=== PATIENT | male | born 1980 | race Caucasian/White ===

== ENCOUNTER 2017-02-27 12:05 | Emergency (ER) | payer OTHER ==
[2017-02-27 12:18] VITALS: BP 134/84; PULSE 85; RESP 18; TEMP 98
--- NOTE | 2017-02-27 12:41 | ED ---
General Adult HPI - General Chief complaint: Extremity Injury, Upper Stated complaint: Left Shoulder Injury-[facility] Time Seen by Provider: 02/27/17 12:18 Source: patient, RN notes reviewed Mode of arrival: ambulatory Limitations: no limitations - History of Present Illness Initial comments: Patient 37-year-old male who presents emergency room today with a chief complaint of increased pain to the left shoulder. He states that over the last few weeks been noticing some tenderness. He states worse with movements. He does admit to a repetitive motion at his work. Patient states worse today with any movement of the left shoulder and also left bicep. States feels like he cannot shoulder. Patient states she's been using ibuprofen along with some [place] for the pain. He denies any other injury or complaint. Patient denies any recent fever, chills, shortness of breath, chest pain, back pain, abdominal pain, nausea or vomiting, numbness or tingling, dysuria or hematuria, constipation or diarrhea, headaches or visual changes, or any other complaints. - Related Data Previous Rx's Medication Instructions Recorded Ibuprofen [Motrin] 800 mg PO Q6HR #30 tab 02/27/17 predniSONE 40 mg PO DAILY 5 Days 02/27/17 Allergies Allergy/AdvReac Type Severity Reaction Status Date / Time amoxicillin [From Augmentin] AdvReac Nausea & Verified 02/27/17 12:17 Vomiting & Diarrhea clavulanic acid AdvReac Nausea & Verified 02/27/17 12:17 [From Augmentin] Vomiting & Diarrhea Review of Systems ROS Statement: Those systems with pertinent positive or pertinent negative responses have been documented in the HPI. ROS Other: All systems not noted in ROS Statement are negative. Past Medical History Past Medical History: Hyperlipidemia History of Any Multi-Drug Resistant Organisms: None Reported Past Surgical History: No Surgical Hx Reported Past Psychological History: No Psychological Hx Reported Smoking Status: Never smoker Past Alcohol Use History: None Reported Past Drug Use History: None Reported General Exam - General Exam Comments Initial Comments: General: The patient is awake and alert, in no distress, and does not appear acutely ill. Neck: The neck is supple, there is no tenderness or JVD. Cardiovascular: There is a regular rate and rhythm. No murmur, rub or gallop is appreciated. Respiratory: Lungs are clear to auscultation, respirations are non-labored, breath sounds are equal. No wheezes, stridor, rales, or rhonchi. Musculoskeletal: Normal appearance of left shoulder no obvious deformity. He shows limited range of motion due to pain. Is able to passive movement of the shoulder area is sensations are intact pulses equal bilaterally 2+. He does have tenderness in the bicipital groove. Patient's pain reproduced with flexion against resistance of the left bicep. Neurological: A&O x 3. CN II-XII intact, There are no obvious motor or sensory deficits. Coordination appears grossly intact. Speech is normal. Skin: Skin is warm and dry and no rashes or lesions are noted. Psychiatric: Normal mood and affect. Limitations: no limitations Course Vital Signs 02/27/17 12:13 Temperature 98.0 F Pulse Rate 85 Respiratory 18 Rate Blood Pressure 134/84 O2 Sat by Pulse 98 Oximetry Medical Decision Making - Medical Decision Making Patient's symptoms are consistent with biceps tendinitis. Will be continued on anti-inflammatories given short course of steroids for symptoms advised follow- up with orthopedics for further evaluation Disposition Clinical Impression: Biceps tendinitis Disposition: HOME SELF-CARE Condition: Good Instructions: Tendinitis (ED) Additional Instructions: Please use medication as discussed. Please follow-up with orthopedics over the next 2 days as discussed. Please return to emergency room if the symptoms increase or worsen or for any other concerns. Prescriptions: Ibuprofen [Motrin] 800 mg PO Q6HR #30 tab predniSONE 40 mg PO DAILY 5 Days Referrals: Johnathon Moser MD [Primary Care Provider] - 1-2 days Tanner Boyer MD [STAFF PHYSICIAN] - 1-2 days Time of Disposition: 12:41
== END 2017-02-27 12:59 | disposition home or self-care (01) ==
LOC: EC 12:05
DX: M75.22 Bicipital tendinitis, left shoulder (principal); Z88.0 Allergy status to penicillin
CPT/HCPCS: 99283

== ENCOUNTER 2018-08-14 13:07 | Observation (INO) | payer OTHER ==
[2018-08-14] MEDS ORDERED: SODIUM CHLORIDE 0.9% 500 ML 500 ML IV STA (15:10)
[2018-08-14] MEDS ORDERED: MECLIZINE 12.5 MG TAB PO STA (15:10)
--- NOTE | 2018-08-14 15:14 | ED ---
General Adult HPI - General Chief complaint: Dizziness Stated complaint: Chest pain Time Seen by Provider: 08/14/18 15:01 Source: patient, family, RN notes reviewed Mode of arrival: ambulatory Limitations: no limitations - History of Present Illness Initial comments: Patient is a pleasant 38-year-old male presenting to the emergency Department with both dizziness and chest discomfort. Chest discomfort has been intermittent over the past week. Patient has episodes lasting up to around 10 minutes. Episodes are described as pressure in there is areas of the chest. Last episode was around arrival to the emergency Department. No associated dyspnea, nausea, or diaphoresis. Patient does also feel lightheaded since this morning. Lightheadedness is positional. No confusion. No weakness. No vomiting. No visual changes. No confusion. Patient denies spinning type sensation. - Related Data Home Medications Medication Instructions Recorded Confirmed Loratadine [Claritin] 10 mg PO HS 08/14/18 08/14/18 Ranitidine HCl [Zantac] 150 mg PO HS 08/14/18 08/14/18 Allergies Allergy/AdvReac Type Severity Reaction Status Date / Time amoxicillin [From Augmentin] AdvReac Nausea & Verified 08/14/18 13:51 Vomiting & Diarrhea clavulanic acid AdvReac Nausea & Verified 08/14/18 13:51 [From Augmentin] Vomiting & Diarrhea Review of Systems ROS Statement: Those systems with pertinent positive or pertinent negative responses have been documented in the HPI. ROS Other: All systems not noted in ROS Statement are negative. Constitutional: Denies: fever Eyes: Denies: eye pain ENT: Denies: ear pain Respiratory: Denies: cough, dyspnea Cardiovascular: Reports: chest pain Endocrine: Denies: fatigue Gastrointestinal: Denies: abdominal pain Genitourinary: Denies: dysuria Musculoskeletal: Denies: back pain Skin: Denies: rash Neurological: Denies: headache, weakness, confusion Past Medical History Past Medical History: Hyperlipidemia History of Any Multi-Drug Resistant Organisms: None Reported Past Surgical History: No Surgical Hx Reported Past Psychological History: No Psychological Hx Reported Smoking Status: Never smoker Past Alcohol Use History: None Reported Past Drug Use History: None Reported General Exam Limitations: no limitations General appearance: alert, in no apparent distress Head exam: Present: atraumatic Eye exam: Present: normal appearance, PERRL, EOMI. Absent: nystagmus ENT exam: Present: normal oropharynx Neck exam: Present: normal inspection Respiratory exam: Present: normal lung sounds bilaterally. Absent: chest wall tenderness Cardiovascular Exam: Present: regular rate, normal rhythm Expanded Peripheral pulses: 2+: Radial (R), Radial (L), Dorsalis Pedis (R), Dorsalis Pedis (L) GI/Abdominal exam: Present: soft. Absent: tenderness Extremities exam: Present: normal inspection. Absent: pedal edema, calf tenderness Neurological exam: Present: alert, oriented X3, CN II-XII intact. Absent: motor sensory deficit Expanded Neurological exam: Present: protecting the airway Speech: Present: fluid speech Cranial nerves: EOM's Intact: Normal Motor strength exam: RUE: 5, LUE: 5, RLE: 5, LLE: 5 Eye Response: (4) open spontaneously Motor Response: (6) obeys commands Verbal Response: (5) oriented Psychiatric exam: Present: normal affect, normal mood Skin exam: Present: normal color Course Vital Signs 08/14/18 13:09 Temperature 98.2 F Pulse Rate 64 Respiratory 18 Rate Blood Pressure 142/90 O2 Sat by Pulse 98 Oximetry EKG Findings - EKG Comments: EKG Findings:: Normal sinus rhythm at 70. MD 16. QRS 84. QT 370. QTc 408. Normal axis. Normal QRS. No acute ST change. Medical Decision Making - Medical Decision Making Patient reevaluated and resting comfortably in bed. Lightheadedness has resolved. No chest discomfort at this time. Case was discussed in detail with Dr. Posadas, covering for Dr. Melita tapia, who will admit. She does recommend subcu heparin and cardiology consult. - Lab Data Result diagrams: 08/14/18 14:12 08/14/18 14:12 Lab Results 08/14/18 08/14/18 08/14/18 Range/Units 14:12 14:12 14:12 WBC 5.9 (3.8-10.6) k/uL RBC 5.60 (4.30-5.90) m/uL Hgb 16.2 (13.0-17.5) gm/dL Hct 48.0 (39.0-53.0) % MCV 85.7 (80.0-100.0) fL MCH 29.0 (25.0-35.0) pg MCHC 33.8 (31.0-37.0) g/dL RDW 12.6 (11.5-15.5) % Plt Count 230 (150-450) k/uL Neutrophils % 46 % Lymphocytes % 39 % Monocytes % 7 % Eosinophils % 5 % Basophils % 1 % Neutrophils # 2.7 (1.3-7.7) k/uL Lymphocytes # 2.3 (1.0-4.8) k/uL Monocytes # 0.4 (0-1.0) k/uL Eosinophils # 0.3 (0-0.7) k/uL Basophils # 0.1 (0-0.2) k/uL PT 10.3 (9.0-12.0) sec INR 1.0 (<1.2) APTT 26.0 (22.0-30.0) sec D-Dimer 0.30 (<0.60) mg/L FEU Sodium 141 (137-145) mmol/L Potassium 4.5 (3.5-5.1) mmol/L Chloride 107 (98-107) mmol/L Carbon Dioxide 25 (22-30) mmol/L Anion Gap 9 mmol/L BUN 16 (9-20) mg/dL Creatinine 0.90 (0.66-1.25) mg/dL Est GFR (CKD-EPI)AfAm >90 (>60 ml/min/1.73 sqM) Est GFR (CKD-EPI)NonAf >90 (>60 ml/min/1.73 sqM) Glucose 88 (74-99) mg/dL Calcium 10.0 (8.4-10.2) mg/dL Magnesium 2.1 (1.6-2.3) mg/dL Total Bilirubin 0.9 (0.2-1.3) mg/dL AST 25 (17-59) U/L ALT 44 (21-72) U/L Alkaline Phosphatase 68 (38-126) U/L Creatine Kinase 101 (55-170) U/L Troponin I (0.000-0.034) ng/mL Total Protein 7.6 (6.3-8.2) g/dL Albumin 4.4 (3.5-5.0) g/dL Urine Color Urine Appearance (Clear) Urine pH (5.0-8.0) Ur Specific [place] (1.001-1.035) Urine Protein (Negative) Urine Glucose (UA) (Negative) Urine Ketones (Negative) Urine Blood (Negative) Urine Nitrite (Negative) Urine Bilirubin (Negative) Urine Urobilinogen (<2.0) mg/dL Ur Leukocyte Esterase (Negative) 08/14/18 08/14/18 Range/Units 14:12 15:40 WBC (3.8-10.6) k/uL RBC (4.30-5.90) m/uL Hgb (13.0-17.5) gm/dL Hct (39.0-53.0) % MCV (80.0-100.0) fL MCH (25.0-35.0) pg MCHC (31.0-37.0) g/dL RDW (11.5-15.5) % Plt Count (150-450) k/uL Neutrophils % % Lymphocytes % % Monocytes % % Eosinophils % % Basophils % % Neutrophils # (1.3-7.7) k/uL Lymphocytes # (1.0-4.8) k/uL Monocytes # (0-1.0) k/uL Eosinophils # (0-0.7) k/uL Basophils # (0-0.2) k/uL PT (9.0-12.0) sec INR (<1.2) APTT (22.0-30.0) sec D-Dimer (<0.60) mg/L FEU Sodium (137-145) mmol/L Potassium (3.5-5.1) mmol/L Chloride (98-107) mmol/L Carbon Dioxide (22-30) mmol/L Anion Gap mmol/L BUN (9-20) mg/dL Creatinine (0.66-1.25) mg/dL Est GFR (CKD-EPI)AfAm (>60 ml/min/1.73 sqM) Est GFR (CKD-EPI)NonAf (>60 ml/min/1.73 sqM) Glucose (74-99) mg/dL Calcium (8.4-10.2) mg/dL Magnesium (1.6-2.3) mg/dL Total Bilirubin (0.2-1.3) mg/dL AST (17-59) U/L ALT (21-72) U/L Alkaline Phosphatase (38-126) U/L Creatine Kinase (55-170) U/L Troponin I 0.035 H* (0.000-0.034) ng/mL Total Protein (6.3-8.2) g/dL Albumin (3.5-5.0) g/dL Urine Color Light Yellow Urine Appearance Clear (Clear) Urine pH 6.0 (5.0-8.0) Ur Specific [place] 1.003 (1.001-1.035) Urine Protein Negative (Negative) Urine Glucose (UA) Negative (Negative) Urine Ketones Negative (Negative) Urine Blood Negative (Negative) Urine Nitrite Negative (Negative) Urine Bilirubin Negative (Negative) Urine Urobilinogen <2.0 (<2.0) mg/dL Ur Leukocyte Esterase Negative (Negative) - Radiology Data Radiology results: report reviewed (Computed tomography scan of the brain reveals no acute process), image reviewed (Chest x-ray shows no acute process) Disposition Clinical Impression: Chest pain, Lightheadedness Disposition: ADMITTED IP TO THIS [facility] Is patient prescribed a controlled substance at d/c from ED?: No Referrals: Johnathon Moser MD [Primary Care Provider] - 1-2 days Decision Time: 17:17
[2018-08-14 15:21] LABS: Basophils # (A) 0.1 k/uL (0-0.2); Basophils % (A) 1 %; Eosinophils # (A) 0.3 k/uL (0-0.7); Eosinophils % (A) 5 %; HGB 16.2 gm/dL (13.0-17.5); Lymphocytes # (A) 2.3 k/uL (1.0-4.8); Lymphocytes % (A) 39 %; MCHC 33.8 g/dL (31.0-37.0); MCV 85.7 fL (80.0-100.0); Mean Platelet Volume 9.2; Monocytes # (A) 0.4 k/uL (0-1.0); Monocytes % (A) 7 %; Neutrophils # (A) 2.7 k/uL (1.3-7.7); Neutrophils % (A) 46 %; Platelet Count 230 k/uL (150-450); RDW 12.6 % (11.5-15.5); WBC 5.9 k/uL (3.8-10.6)
[2018-08-14 15:27] LABS: ALT 44 U/L (21-72); AST 25 U/L (17-59); Albumin 4.4 g/dL (3.5-5.0); Alkaline Phosphatase 68 U/L (38-126); Anion Gap 9 mmol/L; Blood Urea Nitrogen 16 mg/dL (9-20); Carbon Dioxide 25 mmol/L (22-30); Chloride 107 mmol/L (98-107); Creatine Kinase 101 U/L (55-170); Glucose 88 mg/dL (74-99); Magnesium 2.1 mg/dL (1.6-2.3); Potassium 4.5 mmol/L (3.5-5.1); Sodium 141 mmol/L (137-145); Total Bilirubin 0.9 mg/dL (0.2-1.3); Total Protein 7.6 g/dL (6.3-8.2)
[2018-08-14 15:33] LABS: D-Dimer 0.3 mg/L FEU (<0.60); Prothrombin Time 10.3 sec (9.0-12.0)
--- NOTE | 2018-08-14 15:45 | XR ---
EXAMINATION TYPE: XR chest 2V DATE OF EXAM: 08/14/2018 COMPARISON: NONE HISTORY: Lightheadedness and chest pain today. TECHNIQUE: Frontal and lateral views of the chest are obtained. FINDINGS: There is no focal air space opacity, pleural effusion, or pneumothorax seen. The cardiac silhouette size is within normal limits. The osseous structures are intact. IMPRESSION: No acute process.
[2018-08-14 15:46] LABS: Appearance,Urine Clear (Clear); Bilirubin,Urine Negative (Negative); Blood,Urine Negative (Negative); Color,Urine Light Yellow; Glucose,Urine (UA) Negative (Negative); Ketones,Urine Negative (Negative); Leukocyte Esterase,Urine Negative (Negative); Nitrite,Urine Negative (Negative); Protein,Urine Negative (Negative); Specific Gravity,Urine 1.003 (1.001-1.035); Urobilinogen,Urine <2.0 mg/dL (<2.0)
--- NOTE | 2018-08-14 16:28 | CT ---
EXAMINATION TYPE: CT brain wo con DATE OF EXAM: 08/14/2018 COMPARISON: NONE HISTORY: Dizziness today. CT DLP: 1079.4 mGycm. Automated Exposure Control for Dose Reduction was Utilized. TECHNIQUE: CT scan of the head is performed without contrast. FINDINGS: There is no acute intracranial hemorrhage, mass effect, or midline shift identified. No suspicious extra axial fluid collection. The ventricles and sulci are within normal limits in size. The globes are intact. Near circumferential mucosal thickening is seen within the right maxillary sin us. Scant mucosal thickening is also present within the left maxillary sinus and sphenoid sinus. Mild mucosal thickening within the ethmoid sinuses seen. Frontal sinuses are well aerated as are the mast oid air cells. IMPRESSION: No acute intracranial hemorrhage, mass effect, or midline shift is seen.
[2018-08-14] MEDS ORDERED: ASPIRIN 81 MG PO STA (17:18)
[2018-08-14] MEDS ORDERED: NITROGLYCERIN SL TABS 0.4 MG TAB SUBLINGUAL PRN (17:18)
[2018-08-14] MEDS: NITROGLYCERIN OINT 1 INCH/GM PACKET TOPICAL SCH ×2 (18:07→23:08)
[2018-08-14] MEDS: HEPARIN SODIUM,PORCINE 5,000 UNIT/ML 1 ML VIAL SQ SCH ×2 (18:07→23:08)
[2018-08-14 18:19] VITALS: BMI 36.9
[2018-08-14] MEDS ORDERED: FAMOTIDINE 20 MG TAB PO SCH (21:00)
[2018-08-14] MEDS ORDERED: LORATADINE 10 MG TAB PO SCH (21:00)
[2018-08-15 03:55] LABS: Cholesterol 318 mg/dL (<200); HDL Cholesterol 23 mg/dL (40-60); LDL Cholesterol,Calculated 229 mg/dL (0-99); Triglycerides 328 mg/dL (<150)
[2018-08-15] MEDS: NITROGLYCERIN OINT 1 INCH/GM PACKET TOPICAL SCH (06:33)
[2018-08-15] MEDS: HEPARIN SODIUM,PORCINE 5,000 UNIT/ML 1 ML VIAL SQ SCH (08:12)
--- NOTE | 2018-08-15 08:53 | P.CRDCN ---
History of Present Illness Consult date: 08/15/18 Requesting physician: Bhumi Posadas Consult reason: chest pain Chief complaint: Dizziness, chest pain History of present illness: This is a pleasant 38-year-old gentleman with history of hyperlipidemia, nonsmoker, no diabetes, nonhypertensive. He presents to the hospital with symptoms of dizziness and generally not feeling well. He also was complaining of some atypical chest pain that he described as a poking aching sensation in different areas of his chest. Patient has been on Zocor in the past, 40 mg, this had been increased to 80 mg and patient developed muscle aching so it was discontinued. Subsequent to that he was started on Crestor and develop symptoms from that as well so currently he is not taking anything. Patient was initially started on statin at the age of 24. His cholesterol is 318, triglycerides 328, LDL 229 and HDL 23. Picture suggestive of heterozygous familial hyperlipidemia. I did talk to the patient this morning about the PCSK- 9 inhibitors. At this point in time we will start the patient on Zetia. CAT scan of the brain was performed on admission which was negative. Chest x-ray does not reveal any acute process. EKG shows normal sinus rhythm with no acute changes. Blood pressure 114/70 with a heart rate in the 60s, 96% on room air. White blood cell count 5.9, hemoglobin 16.2, platelet count 2:30. D-dimer 0.3. Sodium 141, potassium 4.5, BUN 16 and creatinine 0.9. Initial troponin 0.035, subsequent troponins 0.012, 0.012. At the time of my examination this morning, patient feels well, denies any chest pain, no dizziness or lightheadedness. Past Medical History Past Medical History: Asthma, Hyperlipidemia History of Any Multi-Drug Resistant Organisms: None Reported Past Surgical History: No Surgical Hx Reported Past Anesthesia/Blood Transfusion Reactions: No Reported Reaction Past Psychological History: No Psychological Hx Reported Smoking Status: Never smoker Past Alcohol Use History: None Reported Past Drug Use History: None Reported - Past Family History Father History Unknown: Yes Family Medical History: Coronary Artery Disease (CAD), Hyperlipidemia, Myocardial Infarction (ID) Mother Family Medical History: Hyperlipidemia, Hypertension Medications and Allergies Home Medications Medication Instructions Recorded Confirmed Type Loratadine [Claritin] 10 mg PO HS 08/14/18 08/14/18 History Ranitidine HCl [Zantac] 150 mg PO HS 08/14/18 08/14/18 History Allergies Allergy/AdvReac Type Severity Reaction Status Date / Time amoxicillin [From Augmentin] AdvReac Nausea & Verified 08/14/18 13:51 Vomiting & Diarrhea clavulanic acid AdvReac Nausea & Verified 08/14/18 13:51 [From Augmentin] Vomiting & Diarrhea Physical Exam Vitals: Vital Signs Temp Pulse Pulse Resp BP BP Pulse Ox 08/15/18 04:00 97.6 F 60 16 99/64 97 08/15/18 03:40 20 08/15/18 00:00 60 20 08/14/18 23:06 98 F 60 20 115/71 96 08/14/18 20:00 98.1 F 67 20 124/79 98 08/14/18 19:54 96 08/14/18 18:42 64 18 08/14/18 18:39 98.1 F 64 18 127/87 98 08/14/18 17:43 98.2 F 71 19 119/92 98 08/14/18 13:09 98.2 F 64 18 142/90 98 Intake and Output 08/14/18 08/15/18 08/15/18 22:59 06:59 14:59 Intake Total 300 250 Balance 300 250 Intake: Oral 300 250 Other: # Voids 2 Weight 117.9 kg PHYSICAL EXAMINATION: GENERAL: 38-year-old gentleman in no acute distress at the time of my examination HEENT: Head is atraumatic, normocephalic. Pupils equal, round. Sclera anicteric. Conjunctiva are clear. Mucous membranes of the mouth are moist. Neck is supple. There is no elevated jugular venous pressure. No carotid bruit is heard. HEART EXAMINATION: Heart S1, S2 normal. No murmur or gallop heard. CHEST EXAMINATION: Lungs are clear to auscultation and precussion. No chest wall tenderness is noted on palpation or with deep breathing. ABDOMEN: Soft, nontender. Bowel sounds are heard. No organomegaly noted. EXTREMITIES: 2+ peripheral pulses with no evidence of peripheral edema and no calf tenderness noted. NEUROLOGIC patient is awake, alert and oriented 3 . . Results 08/14/18 14:12 08/14/18 14:12 Cardiac Enzymes 08/14/18 08/14/18 08/14/18 Range/Units 14:12 14:12 20:15 AST 25 (17-59) U/L Troponin I 0.035 H* <0.012 (0.000-0.034) ng/mL 08/15/18 Range/Units 03:15 AST (17-59) U/L Troponin I <0.012 (0.000-0.034) ng/mL Coagulation 08/14/18 Range/Units 14:12 PT 10.3 (9.0-12.0) sec APTT 26.0 (22.0-30.0) sec Lipids 08/15/18 Range/Units 03:15 Triglycerides 328 H (<150) mg/dL Cholesterol 318 H (<200) mg/dL HDL Cholesterol 23 L (40-60) mg/dL CBC 08/14/18 Range/Units 14:12 WBC 5.9 (3.8-10.6) k/uL RBC 5.60 (4.30-5.90) m/uL Hgb 16.2 (13.0-17.5) gm/dL Hct 48.0 (39.0-53.0) % Plt Count 230 (150-450) k/uL Comprehensive Metabolic Panel 08/14/18 Range/Units 14:12 Sodium 141 (137-145) mmol/L Potassium 4.5 (3.5-5.1) mmol/L Chloride 107 (98-107) mmol/L Carbon Dioxide 25 (22-30) mmol/L BUN 16 (9-20) mg/dL Creatinine 0.90 (0.66-1.25) mg/dL Glucose 88 (74-99) mg/dL Calcium 10.0 (8.4-10.2) mg/dL AST 25 (17-59) U/L ALT 44 (21-72) U/L Alkaline Phosphatase 68 (38-126) U/L Total Protein 7.6 (6.3-8.2) g/dL Albumin 4.4 (3.5-5.0) g/dL Current Medications Generic Name Dose Route Start Last Admin Trade Name Freq PRN Reason Stop Dose Admin Aspirin 325 mg 08/15/18 09:00 08/15/18 08:12 Aspirin PO 325 mg DAILY [facility] Administration Atorvastatin Calcium 80 mg 08/15/18 09:00 Lipitor PO DAILY ABHISHEK Famotidine 20 mg 08/14/18 21:00 08/14/18 21:20 Pepcid PO 20 mg HS ABHISHEK Administration Heparin Sodium (Porcine) 5,000 unit 08/14/18 17:30 08/15/18 08:12 Heparin SQ 5,000 unit Q8HR ABHISHEK Administration Loratadine 10 mg 08/14/18 21:00 08/14/18 21:20 Claritin PO 10 mg HS ABHISHEK Administration Nitroglycerin 1 inch 08/14/18 18:00 08/15/18 06:33 Nitro-Bid Oint TOPICAL Not Given Q6HR ABHISHEK Nitroglycerin 0.4 mg 08/14/18 17:18 Nitrostat SUBLINGUAL Q5M PRN Chest Pain Sodium Chloride 10 ml 08/14/18 21:00 08/15/18 08:12 Saline Flush IV 10 ml BID ABHISHEK Administration Intake and Output 08/14/18 08/15/18 08/15/18 22:59 06:59 14:59 Intake Total 300 250 Balance 300 250 Intake: Oral 300 250 Other: # Voids 2 Weight 117.9 kg 08/14/18 14:12 08/14/18 14:12 EKG Interpretations (text) EKG shows normal sinus rhythm with no acute changes. Assessment and Plan Plan: Assessment and plan #1 chest pain atypical for acute coronary syndrome. Troponin 0.035, 0.012, 0.012. EKG shows normal sinus rhythm with no acute changes. #2 hyperlipidemia #3 dizziness, suggestive of possible vertigo. CT of the brain did not reveal any acute abnormality Plan We will obtain an echocardiogram with Doppler study. We will also start the patient on Tuesday on an as an outpatient recommend initiating PCS K9 inhibition. Patient has been recommended to undergo stress echocardiographic study which will be performed today. Further recommendations will be based on these findings and the patient's clinical course. DNP note has been reviewed, I agree with a documented findings and plan of care. Patient was seen and examined.
[2018-08-15] MEDS ORDERED: ASPIRIN 325 MG TAB PO SCH (09:00)
[2018-08-15] MEDS ORDERED: EZETIMIBE 10 MG TAB PO SCH (09:00)
[2018-08-15] MEDS ORDERED: ATORVASTATIN 80 MG TAB PO SCH (09:00)
[2018-08-15 10:07] VITALS: RESP 18
--- NOTE | 2018-08-15 11:55 | ECHOF ---
Referral Reason:cp MEASUREMENTS -------- HEIGHT: 182.9 cm WEIGHT: 117.5 kg BP: RVIDd: 3.1 cm (< 3.3) IVSd: 1.4 cm (0.6 - 1.1) LVIDd: 3.4 cm (3.9 - 5.3) LVPWd: 1.3 cm (0.6 - 1.1) IVSs: 1.8 cm LVIDs: 1.4 cm LVPWs: 1.9 cm LAESV Index (A-L): 17.56 ml/m Ao Diam: 3.1 cm (2.0 - 3.7) AV Cusp: 2.4 cm (1.5 - 2.6) LA Diam: 3.6 cm (2.7 - 3.8) MV EXCURSION: 14.924 mm (> 18.000) MV EF SLOPE: 87 mm/s (70 - 150) EPSS: 0.2 cm MV E Alec: 0.77 m/s MV DecT: 257 ms MV A Alec: 0.53 m/s MV E/A Ratio: 1.47 RAP: 5.00 mmHg RVSP: 18.93 mmHg FINDINGS -------- Sinus rhythm. This was a technically good study. The left ventricular size is normal. There is mild concentric left ventricular hypertrophy. Overa ll left ventricular systolic function is normal with, an EF between 55 - 60 %. The right ventricle is normal in size. Normal LA size by volume 22+/-6 ml/m2. The right atrial size is normal. The aortic valve is trileaflet, and appears structurally normal. No aortic stenosis or regurgitation. The mitral valve is normal. There is trace mitral regurgitation. Trace tricuspid regurgitation present. There is no evidence of pulmonary hypertension. The right ventricular systolic pressure, as measured by Doppler, is 18.93mmHg. There is no pulmonic regurgitation present. The aortic root size is normal. Normal inferior vena cava with normal inspiratory collapse consistent with estimated right atrial pre ssure of 5 mmHg. There is no pericardial effusion. CONCLUSIONS -------- 1. Sinus rhythm. 2. This was a technically good study. 3. The left ventricular size is normal. 4. There is mild concentric left ventricular hypertrophy. 5. Overall left ventricular systolic function is normal with, an EF between 55 - 60 %. 6. Normal LA size by volume 22+/-6 ml/m2. 7. The aortic valve is trileaflet, and appears structurally normal. No aortic stenosis or regurgitati on. 8. There is trace mitral regurgitation. 9. Trace tricuspid regurgitation present. 10. There is no evidence of pulmonary hypertension. 11. There is no pulmonic regurgitation present. 12. The aortic root size is normal. 13. Normal inferior vena cava with normal inspiratory collapse consistent with estimated right atrial pressure of 5 mmHg. 14. There is no pericardial effusion. EXTENSION DIVISION DIRECTOR: Miladis Wood RDCS
[2018-08-15 12:22] VITALS: BP 137/86; PULSE 84; TEMP 98
--- NOTE | 2018-08-15 12:56 | P.HPIM ---
History of Present Illness H&P Date: 08/15/18 Chief Complaint: Chest pain This will serve both an H&P and discharge summary this Is a 38-year-old gentleman patient of Dr. Moser, with known history of hyperlipidemia asthma, admitted to the hospital secondary to dizziness and not feeling well, along with off and on chest pressure for 5 days. This was as described as poking ache, different areas of the chest, he was on statins in the past which was increased to Zocor 80, however he discontinued this secondary to increasing myalgia, this was later switched to Crestor and also got the same myalgia symptoms. Currently not on any statin, patient denies any cough no fever no chills, no wheezing episodes Patient was subsequently seen in the emergency room, troponin .035 ,.012 ,.012 EKG normal sinus rhythm with sinus arrhythmia no ST-T wave changes no Q waves no QT prolongation, chest x-ray shows no focal airspace disease, no pneumothorax, no pleural effusion Past Medical History Past Medical History: Asthma, Hyperlipidemia History of Any Multi-Drug Resistant Organisms: None Reported Past Surgical History: No Surgical Hx Reported Past Anesthesia/Blood Transfusion Reactions: No Reported Reaction Past Psychological History: No Psychological Hx Reported Smoking Status: Never smoker Past Alcohol Use History: None Reported Past Drug Use History: None Reported - Past Family History Father History Unknown: Yes Family Medical History: Coronary Artery Disease (CAD), Hyperlipidemia, Myocardial Infarction (DC) Mother Family Medical History: Hyperlipidemia, Hypertension Medications and Allergies Home Medications Medication Instructions Recorded Confirmed Type Loratadine [Claritin] 10 mg PO HS 08/14/18 08/14/18 History Ranitidine HCl [Zantac] 150 mg PO HS 08/14/18 08/14/18 History Allergies Allergy/AdvReac Type Severity Reaction Status Date / Time amoxicillin [From Augmentin] AdvReac Nausea & Verified 08/14/18 13:51 Vomiting & Diarrhea clavulanic acid AdvReac Nausea & Verified 08/14/18 13:51 [From Augmentin] Vomiting & Diarrhea Physical Exam Vitals: Vital Signs Temp Pulse Pulse Resp BP BP Pulse Ox 08/15/18 12:00 98.0 F 84 18 137/86 96 08/15/18 08:00 97.9 F 69 18 130/84 95 08/15/18 04:00 97.6 F 60 16 99/64 97 08/15/18 03:40 20 08/15/18 00:00 60 20 08/14/18 23:06 98 F 60 20 115/71 96 08/14/18 20:00 98.1 F 67 20 124/79 98 08/14/18 19:54 96 08/14/18 18:42 64 18 08/14/18 18:39 98.1 F 64 18 127/87 98 08/14/18 17:43 98.2 F 71 19 119/92 98 08/14/18 13:09 98.2 F 64 18 142/90 98 Intake and Output 08/14/18 08/15/18 08/15/18 22:59 06:59 14:59 Intake Total 300 250 Balance 300 250 Intake: Oral 300 250 Other: # Voids 2 0 Weight 117.9 kg 117.9 kg Results CBC & Chem 7: 08/14/18 14:12 08/14/18 14:12 Labs: Abnormal Lab Results - Last 24 Hours (Table) 08/14/18 08/15/18 Range/Units 14:12 03:15 Troponin I 0.035 H* (0.000-0.034) ng/mL Triglycerides 328 H (<150) mg/dL Cholesterol 318 H (<200) mg/dL LDL Cholesterol, Calc 229 H (0-99) mg/dL HDL Cholesterol 23 L (40-60) mg/dL Thrombosis Risk Factor Assmnt - Choose All That Apply Any of the Below Risk Factors Present?: No Other Risk Factors: No Other congenital or acquired thrombophilia - If yes, enter type in comment: No Thrombosis Risk Factor Assessment Level: Very Low Risk Assessment and Plan Plan: Atypical chest pain with known history of hyperlipidemia, and statin intolerance, admitted with borderline initial troponins, patient was seen by cardiology for which a stress echocardiogram was performed Echocardiogram shows normal LV function, mild concentric LVH, EF 55-60%, trace MR and trace CA no pulmonary hypertension, no pericardial effusion no pulmonary hypertension 2. Asthma without exacerbation, mild intermittent on Zantac and Claritin 3. Chronic perennial ALLERGIES on Zantac and Claritin 4. Hyperlipidemia, LDL 229 triglyceride 328 started on Zetia has statin intolerance to simvastatin as well as Crestor, PK SK9 inhibition is considered to be started as an outpatient, requires prior FOR either praluent or repatha, low-cholesterol diet again enforced 5. GI prophylaxis 6. DVT prophylaxis ,
--- NOTE | 2018-08-15 14:01 | ECHOS ---
STRESS ECHOCARDIOGRAM INDICATIONS: Chest pain. MEDICATIONS: Loratadine, Ranitidine. BASELINE HEART RATE: 75 BASELINE BLOOD PRESSURE: 140/94 MAXIMUM HEART RATE: 175 MAXIMUM BLOOD PRESSURE: 194/109 85% MPHR: 154 100% MPHR: 181 METS: 10.1 MAXIMUM STAGE REACHED: 3 TOTAL EXERCISE TIME: 9:00 CLINICAL INFORMATION: Baseline rhythm is a sinus mechanism, rate of 75, normal axis and intervals. Normal echocardiogram. Baseline blood pressure 140/94 mmHg. Patient exercised on Avtar protocol for 9 minutes reaching peak rate of 175 beats per minute which is equal to 97% maximum predicted heart rate. Peak blood pressure 194/109 mmHg. Test was terminated secondary to fatigue. There were no chest pain. Electrocardiograph monitoring revealed ventricular couplets and triplets. There was no evidence of diagnostic ischemic ST deviation. FINDINGS: Baseline echocardiogram revealed normal wall thickening and motion at peak exercise. There was normal wall motion augmentation with no hypokinesis or dyskinesis. CONCLUSION: 1. Average exercise tolerance with normal electrocardiographic response to exercise with ventricular triplets and couplets. 2. Normal EKG response to exercise. 3. Normal stress echocardiogram with no evidence of stress-induced ischemia. MMODL / IJN: [id number] /
== END 2018-08-15 15:56 | disposition home or self-care (01) ==
LOC: EC 13:07 → 3SCARD 17:18
PROVIDERS: ADMIT Family Medicine; ATTEND Family Medicine
DX: R07.89 Other chest pain (principal); E78.5 Hyperlipidemia, unspecified; J45.909 Unspecified asthma, uncomplicated; R42 Dizziness and giddiness; Z88.0 Allergy status to penicillin; Z82.49 Family history of ischemic heart disease and other diseases of the circulatory system; Z79.899 Other long term (current) drug therapy
CPT/HCPCS: 96372 ×2; 93005; 96360; 99285; 36415; 94760; 94762; 93306; 93351; 85379; 80061; 80053; 82550; 83735; 84484 ×2; 85025; 85610; 85730; 81003; 71046; 70450; G0378 ×2; J1644 ×2